=== PATIENT | male | born 2000 | race Caucasian/White ===

== ENCOUNTER 2018-03-11 01:12 | Emergency (ER) | payer OTHER ==
[2018-03-11] MEDS ORDERED: Ondansetron ODT 4 MG TAB ONE ×2 (01:23→01:27)
== END 2018-03-11 03:48 | disposition home or self-care (01) ==
LOC: ERS 01:12
DX: F10.129 Alcohol abuse with intoxication, unspecified (principal)
CPT/HCPCS: 36416; 96360; 96361; Q0162